=== PATIENT | female | born 1935 | race Caucasian/White ===

== ENCOUNTER 2016-10-20 10:04 | Day surgery (SDC) | payer MEDICARE ==
[~2016-10-20] VITALS: Ht 152.4 cm
--- NOTE | 2016-10-22 08:12 | OR ---
ADMIT: 10/20/2016 RM/LOC: [facility] MR#: [id number] [address] [id number] BONITA PANDA [address] [address] Operative/Delivery Room Report SEX: F AGE: 81 : 1935 SURGERY DATE: 10/20/2016 SURGEON: Jean-Pierre Hamilton MD FINANCIAL DIRECTOR: None. PREOPERATIVE DIAGNOSES: 1. Bilateral shoulder arthritis. 2. Bilateral shoulder pain. POSTOPERATIVE DIAGNOSES: 1. Bilateral shoulder arthritis. 2. Bilateral shoulder pain. OPERATION: Bilateral shoulder joint injection, anterior approach. INDICATIONS FOR PROCEDURE: The patient is a pleasant female with history of chronic bilateral shoulder pain secondary to above-mentioned diagnoses, come here for planned bilateral shoulder injection. ANESTHESIA: Local without sedation. ESTIMATED BLOOD LOSS: Zero. COMPLICATIONS: None immediately evident. DESCRIPTION OF THE PROCEDURE: After patient was seen in preoperative area, vital signs were taken. Prior to procedure, the risks, benefits, and alternative therapies were discussed at length. Patient consent was obtained and updated. The patient was taken to Fluoroscopy Suite and placed on a fluoroscopy table in a prone position. Pressure points were padded to comfort, monitors applied and a timeout performed. C-arm was brought in to identify the right shoulder joint. Lidocaine plain, 1%, approximately 1 mL was used to anesthetize the skin, underlying subcutaneous tissue. A 3.5 inch 22-gauge curved-tip needle was then advanced through the anesthetized skin and placed into the right shoulder joint space. ADMIT: 10/20/2016 RM/LOC: [facility] MR#: [id number] [address] [address] BONITA PANDA [address] [address] Operative/Delivery Room Report SEX: F AGE: 81 : 1935 Isovue-300 was injected into joint and showed good spread into the shoulder joint. After correct placement was confirmed, 3 mL of 1% lidocaine and 40 mg of Depo-Medrol were injected. Then, we moved on to the left side and repeated the same procedure. The patient tolerated the procedure well without any complications. The patient was then brought to PACU where she recovered nicely. PLAN: The patient was examined twenty minutes after the conclusion of the procedure and had 60% reduction of pain. Discharge instructions were given, followup scheduled. The patient was discharged home with a ems driver. Jean-Pierre Hamilton MD/ tom JOB #: [id number] CC: Jean-Pierre Hamilton, Attending Physician Chuckie Salazar, Family Physician
== END 2016-10-20 11:45 | disposition home or self-care (01) ==
LOC: SSS 10:04
PROC: 3E0U33Z Introduction of Anti-inflammatory into Joints, Percutaneous Approach (ICD-10-PCS; principal; 2016-10-20)
PROC: 3E0U3BZ Introduction of Anesthetic Agent into Joints, Percutaneous Approach (ICD-10-PCS; principal; 2016-10-20)
DX: G89.29 Other chronic pain (principal); M19.012 Primary osteoarthritis, left shoulder; M19.011 Primary osteoarthritis, right shoulder; Z88.0 Allergy status to penicillin; Z88.2 Allergy status to sulfonamides; Z88.1 Allergy status to other antibiotic agents; Z88.8 Allergy status to other drugs, medicaments and biological substances; Z79.899 Other long term (current) drug therapy

== ENCOUNTER 2016-11-23 14:00 | Emergency (ER) | payer MEDICARE ==
--- NOTE | 2016-11-28 17:50 | ER ---
ADMIT: 11/23/2016 RM/LOC: ER [facility] MR#: [id number] [facility] [address] [place] [id number] BONITA PANDA [address] [place] [id number] Emergency Room Report SEX: F AGE: 81 : 1935 DATE: 11/23/2016 ADDENDUM: This 81-year-old female with Parkinson's coming in with scalp contusion and hematoma after falling. Did not pass out. She fell because of her Parkinson's. CT scan is negative. Discharged home. Head sheet. Follow up as needed. Ice. CONDITION ON DISCHARGE: Good. Jacques Ny MD/ tom JOB #: [id number] CC: Jacques Ny MD, Attending Physician
== END 2016-11-23 14:59 | disposition home or self-care (01) ==
LOC: ER 14:00
DX: S00.03XA Contusion of scalp, initial encounter (principal); G20 Parkinson's disease; I25.10 Atherosclerotic heart disease of native coronary artery without angina pectoris; I10 Essential (primary) hypertension; Z86.73 Personal history of transient ischemic attack (TIA), and cerebral infarction without residual deficits; Z90.49 Acquired absence of other specified parts of digestive tract; Z90.89 Acquired absence of other organs; Z90.710 Acquired absence of both cervix and uterus; Z88.0 Allergy status to penicillin; Z88.2 Allergy status to sulfonamides; Z88.1 Allergy status to other antibiotic agents; Z79.899 Other long term (current) drug therapy; W18.30XA Fall on same level, unspecified, initial encounter; Y92.009 Unspecified place in unspecified non-institutional (private) residence as the place of occurrence of the external cause